=== PATIENT | female | born 1995 | race Caucasian/White ===

== ENCOUNTER 2016-06-01 16:43 | Emergency (ER) | payer SELFPAY ==
[2016-06-01 17:07] VITALS: BP 113/75; TEMP 98.4; O2SAT 99
[2016-06-01] MEDS ORDERED: KETOROLAC TROMETHAMINE INJ 30 MG/ML VIAL IM ONE (17:14)
[2016-06-01] MEDS ORDERED: PROMETHAZINE HCL 25 MG TAB PO ONE (17:15)
[2016-06-01] MEDS ORDERED: ACETAMINOPHEN-CAFF-BUTALBITAL 1 EA TAB PO SCH (17:30)
--- NOTE | 2016-06-01 18:39 | ED.PDOC ---
History of Present Illness - General Chief Complaint: Headache Stated Complaint: migraine Time Seen by Provider: 06/01/16 16:46 Source: patient Exam Limitations: no limitations - History of Present Illness Initial Comments: the patient is a 21-year-old female presenting to the emergency room secondary to a headache that has been present for approximately 6-8 hours. She has fairly frequent severe headaches at a rate of one every 3 months or so for the last 3 years. No vision changes no smell changes no syncope or near syncope. No neurological changes otherwise. No aura. Headaches seems to start in her forehead between her eyes and over the top of her scalp. Mild nausea but no vomiting. The patient has not taken any Tylenol or Motrin which normally helps her because she is out of it and cannot afford it. She does have a primary care doctor. She has not had any extensive workup for headaches. She does have a family history of migraines but no brain tumors or hydrocephalus. No history of MS in the family. No sore throat or runny nose. No fevers. No vomiting Timing/Duration: 4-6 hours Severity: moderate Improving Factors: nothing Worsening Factors: nothing Associated Symptoms: headaches, malaise, nausea/vomiting Allergies/Adverse Reactions: Allergies NO KNOWN ALLERGY Allergy (Verified 06/01/16 17:03) Home Medications: Ambulatory Orders NK [NK] 03/24/16 Review of Systems - Review of Systems Constitutional: States: malaise EENTM: States: no symptoms reported Respiratory: States: no symptoms reported Cardiology: States: no symptoms reported Gastrointestinal/Abdominal: States: no symptoms reported Genitourinary: States: no symptoms reported Musculoskeletal: States: no symptoms reported Skin: States: no symptoms reported Neurological: States: headache Endocrine: States: no symptoms reported All other Systems: No Change from Baseline Past Medical History (General) - Patient Medical History Hx Seizures: No Hx Stroke: No Hx Dementia: No Hx Asthma: No Hx of COPD: No Hx Cardiac Disorders: No Hx Congestive Heart Failure: No Hx Pacemaker: No Hx Hypertension: No Hx Thyroid Disease: No Hx Diabetes: No Hx Gastroesophageal Reflux: No Hx Renal Disease: No - 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 Hx Cancer: No Hx of HIV: No Hx Hepatitis C: No Hx MRSA: No Surgical History: appendectomy - Vaccination History Hx Tetanus, Diphtheria Vaccination: No Hx Influenza Vaccination: No Hx Pneumococcal Vaccination: No Immunizations Up to Date: No - Social History Hx Tobacco Use: Yes Hx Alcohol Use: Yes - occasional Hx Substance Use: Yes - one week clean Hx Substance Use Treatment: No Hx Depression: No - Female History Patient is a Female of Child Bearing Age (10 -59 yrs old): Yes Hx Last Menstrual Period: 07/19/13 Patient : No Expected Date of Delivery:: 04/25/14 Hx Gestational Age: 38 Family Medical History - Family History Mother Family History: No Known Age (years): 41 Living Status: Still Living Hx Family Hypertension: Yes - grandmother Hx Family Diabetes: No Hx Family;Other: disc disease-mother Father Age (years): 43 Hx Family Hypertension: Yes - grandmother Hx Family Cancer: Yes - gm-breast CA, Cervical CA Paternal Grandparents Age (years): 70s Living Status: Still Living Hx Family Hypertension: Yes Hx Family Cancer: Yes - breast Maternal Grandparents Age (years): 60s Living Status: Still Living Hx Family Diabetes: Yes Physical Exam - Physical Exam General Appearance: Alert, Comfortable, No apparent distress Eye Exam: bilateral normal Ears, Nose, Throat: normal ENT inspection, normal pharynx Neck: non-tender, full range of motion, supple, normal inspection Respiratory: chest non-tender, lungs clear, normal breath sounds, no respiratory distress, no accessory muscle use Cardiovascular/Chest: normal peripheral pulses, regular rate, rhythm, no edema Peripheral Pulses: radial,right: 2+, radial,left: 2+, dorsalis pedis,right: 2+, dorsalis pedis,left: 2+ Gastrointestinal/Abdominal: non tender, soft Rectal Exam: deferred Back Exam: normal inspection Extremity: normal range of motion, non-tender, normal inspection, no pedal edema , no calf tenderness, normal capillary refill 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 Historically they have responded to Motrin and Tylenol. The patient was given a dose of oral Phenergan, Fioricet and 1 dose of IM Toradol. She is feeling better, discharge. She needs to follow up with her primary care doctor towards the end of the week. ER warnings were given for any acute worsening. She needs to increase her fluid intake and keep well- hydrated. She needs to use Tylenol and Motrin at the onset of headaches in the future. - EKG/XRAY/CT CT Ordered: No Departure - Departure Clinical Impression: Tension headache Disposition: Discharge to Home or Self Care Condition: Fair Departure Forms: ED Discharge - Pt. Copy, Patient Portal Self Enrollment Instructions: Tension Headache Diet: regular diet Activity: increase activity as tolerated Home Medications: Ambulatory Orders NK [NK] 03/24/16 Additional Instructions: the patient is a 21-year-old female that appears to have significant periodic tension headaches. Historically they have responded to Motrin and Tylenol. The patient was given a dose of oral Phenergan, Fioricet and 1 dose of IM Toradol. She is feeling better, discharge. She needs to follow up with her primary care doctor towards the end of the week. ER warnings were given for any acute worsening. She needs to increase her fluid intake and keep well- hydrated. She needs to use Tylenol and Motrin at the onset of headaches in the future.
== END 2016-06-01 18:59 | disposition home or self-care (01) ==
LOC: ER 16:43
DX: G44.209 Tension-type headache, unspecified, not intractable (principal); Z87.891 Personal history of nicotine dependence
CPT/HCPCS: J1885; Q0169

== ENCOUNTER 2016-10-22 10:30 | Emergency (ER) | payer SELFPAY ==
[2016-10-22 10:44] VITALS: TEMP 97.1; O2SAT 98
--- NOTE | 2016-10-22 11:20 | ED.PDOC ---
History of Present Illness - General Chief Complaint: Problem Stated Complaint: want to be checked for Chlamydia Time Seen by Provider: 10/22/16 11:13 Source: patient Exam Limitations: no limitations - History of Present Illness Initial Comments: Courtney Parisi 21 y/o female stated she wants to be checked for chlamydia stating she heard that several women here in the area has the STI and admits that she has multiple male sexual partner.Denies vaginal discharge,pelvic pain. Timing/Duration: yesterday Quality: mild Onset Location: unknown Radiation: none Activites at Onset: sexual activity Sexual intercourse history: multiple partners Improving Factors: nothing Worsening Factors: nothing Associated Symptoms: denies symptoms Allergies/Adverse Reactions: Allergies NO KNOWN ALLERGY Allergy (Verified 06/01/16 17:03) Home Medications: Ambulatory Orders Metronidazole 500 mg PO BID #10 tab 10/22/16 Review of Systems - Review of Systems Constitutional: States: no symptoms reported EENTM: States: no symptoms reported Respiratory: States: no symptoms reported Cardiology: States: no symptoms reported Gastrointestinal/Abdominal: States: no symptoms reported Genitourinary: States: see HPI Musculoskeletal: States: no symptoms reported Skin: States: no symptoms reported Neurological: States: no symptoms reported Endocrine: States: no symptoms reported Hematologic/Lymphatic: States: no symptoms reported Past Medical History (General) - Patient Medical History Hx Seizures: No Hx Stroke: No Hx Dementia: No Hx Asthma: No Hx of COPD: No Hx Cardiac Disorders: No Hx Congestive Heart Failure: No Hx Pacemaker: No Hx Hypertension: No Hx Thyroid Disease: No Hx Diabetes: No Hx Gastroesophageal Reflux: No Hx Renal Disease: No - 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 Hx Cancer: No Hx of HIV: No Hx Hepatitis C: No Hx MRSA: No Surgical History: appendectomy - Vaccination History Hx Tetanus, Diphtheria Vaccination: No Hx Influenza Vaccination: No Hx Pneumococcal Vaccination: No - Social History Hx Tobacco Use: Yes Hx Alcohol Use: Yes - occasional Hx Substance Use: Yes - one week clean Hx Substance Use Treatment: No Hx Depression: No - Female History Patient is a Female of Child Bearing Age (10 -59 yrs old): Yes Hx Last Menstrual Period: 07/19/13 Patient : No Expected Date of Delivery:: 10/02/16 Hx Gestational Age: 38 Family Medical History - Family History Mother Family History: No Known Age (years): 41 Living Status: Still Living Hx Family Hypertension: Yes - grandmother Hx Family Diabetes: No Hx Family;Other: disc disease-mother Father Age (years): 43 Hx Family Hypertension: Yes - grandmother Hx Family Cancer: Yes - gm-breast CA, Cervical CA Paternal Grandparents Age (years): 70s Living Status: Still Living Hx Family Hypertension: Yes Hx Family Cancer: Yes - breast Maternal Grandparents Age (years): 60s Living Status: Still Living Hx Family Diabetes: Yes Physical Exam - Physical Exam General Appearance: Alert, Comfortable, No apparent distress Eyes, Ears, Nose, Throat Exam: PERRL/EOMI, normal ENT inspection, TMs normal, pharynx normal Neck: non-tender, full range of motion, supple, normal inspection Cardiovascular/Respiratory: regular rate, rhythm, no M/R/G, normal peripheral pulses, no JVD, normal breath sounds, no respiratory distress Gastrointestinal/Abdominal: normal bowel sounds, non tender, soft, no organomegaly, no pulsatile mass Pelvic Exam: external exam normal, no cerv. motion tender, discharge - profuse whitish discharge Back Exam: normal inspection, no CVA tenderness Extremity: normal range of motion, non-tender, no pedal edema Neurologic: no motor/sensory deficits, alert, oriented x 3 Skin Exam: normal color, warm/dry Lymphatic: no adenopathy Progress - Progress Progress: 10/22/16 12:21 Vital Signs - 8 hr 10/22/16 10:40 Temperature 97.1 F L Pulse Rate [ 94 H Left Brachial] Respiratory 16 Rate Blood Pressure 124/86 [Left Arm] O2 Sat by Pulse 98 Oximetry Departure - Departure Clinical Impression: Vaginal discharge, Possible exposure to STD Time of Disposition: 12:25 Disposition: Discharge to Home or Self Care Condition: Good Departure Forms: ED Discharge - Pt. Copy, Patient Portal Self Enrollment Instructions: Facts About Sexually Transmitted Infections, How to Detect and Treat STDs, Chlamydia: The Silent STD Referrals: Jim Blake MD [Primary Care Provider] - 1-2 Weeks Prescriptions: Metronidazole 500 mg PO BID #10 tab Home Medications: Ambulatory Orders Metronidazole 500 mg PO BID #10 tab 10/22/16 Additional Instructions: Follow up with primary md 10/24/2016 call for appointment
[2016-10-22] MEDS ORDERED: AZITHROMYCIN 250 MG TAB PO ONE (12:23)
[2016-10-22] MEDS ORDERED: LIDOCAINE 1% 10 ML VIAL INJ ONE (12:25)
[2016-10-22 13:00] VITALS: BP 126/87
== END 2016-10-22 12:50 | disposition home or self-care (01) ==
LOC: ER 10:30
DX: Z20.2 Contact with and (suspected) exposure to infections with a predominantly sexual mode of transmission (principal); N89.8 Other specified noninflammatory disorders of vagina; Z87.891 Personal history of nicotine dependence; N28.9 Disorder of kidney and ureter, unspecified
CPT/HCPCS: 87491; 87591; J0696; Q0144

== ENCOUNTER → 2016-12-16 | Outpatient (CLI) | payer OTHER | END | disposition home or self-care (01) | LOC: YCFC.O 15:21 | PROVIDERS: ATTEND Nurse Practitioner Family | DX: R30.9 Painful micturition, unspecified (principal) ==